=== PATIENT | male | born 1950 | race Caucasian/White ===

== ENCOUNTER 2017-08-22 08:36 | Outpatient (CLI) | END 2017-08-22 08:37 | disposition short-term general hospital (02) | LOC: AMBL 08:36 | PROVIDERS: ATTEND Family Medicine | DX: R07.9 Chest pain, unspecified (principal); E11.9 Type 2 diabetes mellitus without complications; I10 Essential (primary) hypertension; F41.9 Anxiety disorder, unspecified ==